=== PATIENT | male | born 1940 | race Caucasian/White ===

== ENCOUNTER → 2016-06-17 20:31 | Outpatient (CLI) | payer MEDICARE ==
[2012-08-24 08:18] VITALS: BMI 27.4
== END | disposition home or self-care (01) ==
LOC: D.LABREF 20:31
DX: R10.9 Unspecified abdominal pain (principal)

== ENCOUNTER 2016-06-22 11:33 | Emergency (ER) | payer MEDICARE ==
[2012-08-24 08:18] VITALS: BMI 27.4
[2016-06-22 12:29] LABS: BASOPHILS 0.4 % (0.0-2.0); HEMATOCRIT 38.4 % (42.0-54.0); IMMATURE GRANULOCYTES 0.1 % (0-5); LYMPHOCYTES 30.1 % (15-50); MCH 31.3 pg (26.0-34.0); MCHC 33.9 g/dL (31.0-37.0); MCV 92.3 fL (80.0-100.0); MEAN PLATELET VOLUME 9.8 fL (7.4-10.4); MONOCYTES 7.8 % (2-11); NEUTROPHILS 59.6 % (40-80); PLATELET COUNT 171 10x3/uL (130-400); RBC 4.16 10x6/uL (4.20-6.10); RDW 13.3 % (11.5-14.5); WBC 7.1 10x3/uL (4.8-10.8)
[2016-06-22 12:46] LABS: ALKALINE PHOSPHATASE 59 U/L (46-116); ALT (SGPT) 17 U/L (10-68); CALC OSMOLALITY 279 mosm/kg (275-300); CALCIUM 8.4 mg/dL (8.5-10.1); CARBON DIOXIDE 25.5 mmol/L (21.0-32.0); CHLORIDE - SERUM 104 mmol/L (98-107); CREATININE - SERUM 0.9 mg/dL (0.6-1.3); GLUCOSE 115 mg/dL (74-106); POTASSIUM - SERUM 4.2 mmol/L (3.5-5.1); PROTEIN - SERUM 6.5 g/dL (6.4-8.2); SODIUM 138 mmol/L (136-145); UREA NITROGEN 22 mg/dL (7-18); eGFR NON AFRICAN AMERICAN 88 mL/min (90-120)
[2016-06-22 12:59] LABS: INR 1.12 (0.85-1.17); PROTIME 14.3 SECONDS (11.6-15.0)
[2016-06-22 13:00] LABS: APTT 29.6 SECONDS (22.8-39.4)
== END 2016-06-22 13:10 | disposition other institution (70) ==
LOC: D.ER 11:33
PROVIDERS: Emergency Medicine
DX: I63.9 Cerebral infarction, unspecified (principal); J45.909 Unspecified asthma, uncomplicated; I48.91 Unspecified atrial fibrillation